=== PATIENT | male | born 1985 | race Two or more races ===

== ENCOUNTER 2021-10-15 10:15 | Emergency (ER) | payer OTHER ==
[~2021-10-15] VITALS: Ht 182.9 cm; Wt 79.4 kg
--- NOTE | 2021-10-15 10:20 | NUR ---
TO ER BED 11.BIB [facility] C/O CHRONIC BACK PAIN AND R SHOULDER PAIN S/P INJURY 5 WEEKS AGO 5/10 PAIN ON PAIN SCALE, PAIN COMES AND GOES. VITALS ARE WITHIN NORMAL LIMITS, NO RESP DISTRESS NOTED. AWAITING MD SCOTT.
[2021-10-15] MEDS ORDERED: ACETAMINOPHEN ES 500 MG TABLET ONE (10:44)
[2021-10-15] MEDS ORDERED: IBUPROFEN 400 MG TABLET ONE (10:45)
[2021-10-15] MEDS ORDERED: ACETAMINOPHEN ES 500 MG TABLET PO ONE (11:00)
[2021-10-15] MEDS ORDERED: IBUPROFEN 400 MG TABLET PO ONE (11:00)
[2021-10-15] MEDS ORDERED: IBUP-1957 PO (12:39)
--- NOTE | 2021-10-15 12:41 | NUR ---
Patient discharged to [facility] custody in stable condition. Written and verbal after care instructions given. Patient verbalizes understanding of instruction.
[2021-10-15 12:42] VITALS: BP 123/72
== END 2021-10-15 12:42 ==
LOC: ER 10:23
DX: S22.31XA Fracture of one rib, right side, initial encounter for closed fracture (principal); S43.101A Unspecified dislocation of right acromioclavicular joint, initial encounter; M54.50 Low back pain, unspecified; X58.XXXA Exposure to other specified factors, initial encounter; Y93.89 Activity, other specified; Y92.89 Other specified places as the place of occurrence of the external cause; Y99.8 Other external cause status
CPT/HCPCS: 71100-TC; 72110-TC; 73030-TC